=== PATIENT | male | born 1940 | race Caucasian/White ===

== ENCOUNTER 2016-08-29 11:43 | Emergency (ER) | payer OTHER ==
[2016-08-29 11:51] VITALS: RESP 16; O2SAT 98
--- NOTE | 2016-08-29 12:08 | CPEKG ---
Heart Rate: 78 RR Interval: 769 P-R Interval: 180 QRSD Interval: 98 QT Interval: 376 QTC Interval: 429 P Wildwood: 77 QRS Wildwood: 48 T Wave Wildwood: -27 EKG Severity - NORMAL ECG - EKG Impression: SINUS RHYTHM Electronically Signed By: Eli Marsh 29-Aug-2016 15:19:35
--- NOTE | 2016-08-29 12:13 | EDPHY ---
H & P Stated Complaint: arm weakness and shaking starting 40 mins ago. and in leg. HPI/ROS: CHIEF COMPLAINT: Right arm paresthesia and weakness HISTORY OF PRESENT ILLNESS: The patient is a healthy 76 y/o male complaining of acute onset right arm weakness and paresthesia today while reaching across a table. He moved a "bus full of suitcases" two days ago and had subsequent right shoulder soreness that has since improved. He additionally has a history of chronic neck pain, which he reports is unchanged. Today, he reached across a table and developed acute onset weakness and circumferential paresthesia to his right forearm. He says it felt like "I was holding a sausage." The weakness has since resolved, but he continues to have some mild persisting tingling in the area. 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 He denies headache, fever, vision changes, trouble speaking or confusion. He has no known history of cardiac disease, stroke, or embolic disease. REVIEW OF SYSTEMS: A ten point review of systems was performed and is negative with the exception of the items mentioned in the HPI. Source: Patient, Family Exam Limitations: No limitations - Personal History Current Tetanus Diphtheria and Acellular Pertussis (TDAP): Yes - Medical/Surgical History PMH: PMH includes: 1. Hypertension - Losartan 2. Neuropathy - Right foot 3. Hernia Surgery 4. Shingles Hx Asthma: No Hx Chronic Respiratory Disease: No Hx Diabetes: No Hx Cardiac Disease: No Hx Renal Disease: No Hx Cirrhosis: No Hx Alcoholism: No Hx HIV/AIDS: No Hx Splenectomy or Spleen Trauma: No Other PMH: PMH:HTN, chronic neck pain. PSH:hernia repair. - Family History Significant Family History: No pertinent family hx - Social History Smoking Status: Never smoked Drug Use: None Additional Social History: Plays tennis 3x a week. at bedside. 1 beer/night. Retired. - Physical Exam Exam: General Appearance: Alert. Vital signs reviewed. Eyes: Pupils equal and round, no conjunctival injection, no discharge. Anicteric. ENT, Mouth: Mucous membranes are moist, no oropharyngeal erythema or edema. Neck: No lymphadenopathy, supple. Respiratory: Lungs are clear to auscultation; no wheezes, rales, or rhonchi. Cardiovascular: Regular rate and rhythm; no murmur, rub, or gallop. Gastrointestinal: Abdomen is soft and nontender, no masses or organomegaly, bowel sounds normal. Skin: Warm and dry, no rashes on exposed skin, normal color. Back: Nontender to palpation over the thoracolumbar spine. No CVAT. Extremities: No lower extremity edema, no calf tenderness or swelling. Neurological: Alert and oriented. Cranial nerves II through XII are examined and are intact (visual acuity not tested). Strength is 5 over 5 bilaterally with testing of all major motor groups. Sensation is intact to light touch over all 4 extremities with exception of mild sensation decrease in right V2-V3 distribution and mild change to lateral aspect of right forearm. Deep tendon reflexes are 2+ in the biceps and knees bilaterally. Gait is normal. Finger-to -nose is performed accurately. Psychiatric: Normal affect. Constitutional: Initial Vital Signs Temperature (C) 36.6 C 08/29/16 11:46 Heart Rate 80 08/29/16 11:46 Respiratory Rate 16 08/29/16 11:46 Blood Pressure 127/76 H 08/29/16 11:46 O2 Sat (%) 98 08/29/16 11:46 O2 Delivery Mode Room Air Allergies/Adverse Reactions: No Known Allergies Allergy (Unverified 08/29/16 11:50) Home Medications: Medication Instructions Recorded [place] 08/29/16 Medical Decision Making - Diagnostics EKG Interpretation: The 12 lead EKG was interpreted by myself. Sinus rhythm 78. See hard copy and/ or "tracemaster" electronic copy for interpretation. Imaging Results: I reviewed the head CT. No hemorrhage or large CVA. Reported to me by radiology via telephone. Imaging: Discussed imaging studies w/ replacer Radiologist ED Course/Re-evaluation: This is a 76 y/o male presenting with continuing mild paresthesias and resolved weakness in his right forearm after reaching across a table today. He may have had some associated mild right foot weakness. He denies other symptoms concerning for stroke. Exam is unremarkable other than mild sensation decrease in right V2-V3 distribution and mild change to lateral aspect of right forearm. Plan for IV, basic labs, CT head, and EKG. 1354: Head CT shows no acute process. EKG and labs are unremarkable. 1420: Reassessed patient. Discussed work up with him. Symptoms resolved. I am encouraging admission for TIA work-up. I doubt that this was seizure, although that is in the ddx. No evidence of intracranial hemorrhage on CT. He is not ill and I do not think that this is an infectious process, such as meningitis. He does not have headache, meaning that this is not a migraine phenomena. 1431: Reassessed patient. His symptoms have completely resolved at this time and he feels at baseline. He tells me has a history of dizziness and previously has had previous TIA work ups. Carotid Doppler 2013 was normal and brain MRI 2014 was normal. I offered admission for further TIA work up which he declined. He is able to make his own medical decisions and understands that, if he experienced TIA today, he is at risk for stroke. He understands that stroke can cause permanent neurologic deficit and even . As he is not interested in hospital admission, I recommended followup with PCP this week. Strict return precautions given. He is comfortable with plan for discharge. - Data Points Laboratory Results: Laboratory Results 08/29/16 11:58 08/29/16 11:58 Departure - Departure Disposition: Home, Routine, Self-Care Clinical Impression: Arm paresthesia, right, Right arm weakness, Resolved Condition: Good Instructions: Paresthesia (ED), Weakness (ED) Additional Instructions: 1. Follow up with primary care provider this week without fail for TIA work up. Call Dr. Castañeda's office today and let them know about today's ED visit. It isn't clear whether your arm/hand numbness are from your recent exercise/nerve root compression or whether you might have had a TIA. Let the office know that you had a head CT that did not show any acute abnormality. Continue with an aspirin daily. 2. Return to the ED immediatley for headache, weakness or numbness on one side of your body, speech difficulty, confusion, or other worsening of condition. Referrals: TAMARA CASTAÑEDA [Primary Care Provider] - As per Instructions Report Scribed for: Eli Marsh Report Scribed by: Keanu Vásquez Date of Report: 08/29/16 Time of Report: 12:50 Physician Review and Approval Statement: 08/29/16 12:13 Portions of this note were transcribed by the certified medical technician assistant. I, Dr. Eli Marsh, personally performed the history, physical exam, and medical decision- making; and confirmed the accuracy of the information in the transcribed note.
[2016-08-29 13:00] LABS: % IMMATURE GRANULYOCYTES 0.2 % (0.0-1.1); ABSOLUTE IMMATURE GRANULOCYTES 0.01 10^3/uL (0.00-0.10); ADD DIFF? NO; ADD MORPH? NO; ADD SCAN? NO; ATYPICAL LYMPHOCYTE FLAG 0 (0-99); FRAGMENT RBC FLAG 0 (0-99); HEMATOCRIT 40.5 % (40.0-51.0); LEFT SHIFT FLG 0 (0-99); LIPEMIA HEMOLYSIS FLAG 80 (0-99); MEAN CELL HEMOGLOBIN 29.3 pg (27.9-34.1); MEAN CELL HEMOGLOBIN CONCENTR. 32.1 g/dL (32.4-36.7); MEAN CELL VOLUME 91.4 fL (81.5-99.8); MEAN PLATELET VOLUME 10.2 fL (8.7-11.7); PLATELET CLUMPS FLAG 0 (0-99); PLATELET COUNT 223 10^3/uL (150-400); RED BLOOD CELL COUNT 4.43 10^6/uL (4.40-6.38); RED CELL DISTRIBUTION WIDTH 15.5 % (11.5-15.2)
[2016-08-29 13:07] LABS: ANION GAP 12 mEq/L (8-16); CALCIUM 9.6 mg/dL (8.5-10.4); CARBON DIOXIDE 27 mEq/l (22-31); CHLORIDE 101 mEq/L (97-110); CREATININE 0.8 mg/dL (0.7-1.3); GLOMERULAR FILTRATION RATE > 60; GLUCOSE 124 mg/dL (70-100); POTASSIUM 3.9 mEq/L (3.5-5.2); SODIUM 140 mEq/L (134-144)
[2016-08-29 14:53] VITALS: BP 127/75; PULSE 77; TEMP 98.4
== END 2016-08-29 15:04 | disposition home or self-care (01) ==
DX: M62.81 Muscle weakness (generalized) (principal); R20.2 Paresthesia of skin; I10 Essential (primary) hypertension
CPT/HCPCS: 82947-QW